=== PATIENT | female | born 2005 | race Caucasian/White ===

== ENCOUNTER 2025-07-18 18:36 | Emergency (ER) | payer MEDICAID ==
[2025-07-18 18:58] VITALS: BP 112/70; PULSE 95; RESP 15; O2SAT 98
--- NOTE | 2025-07-18 19:00 | Physician Documentation ---
History of Present Illness General Stated Complaint: FOOT PAIN Time Seen by MD: 20:17 History of Present Illness Initial Comments 19-year-old female who presents to the emergency department with a complaint of left mid foot pain after jumping over a fence. Seen and evaluated in triage. MSE complete pending x-ray imaging and pain management at when patient has been in the emergency department. History as above. She has taken nothing for the pain Medication Reconciliation Allergies: Coded Allergies: amoxicillin (Verified Allergy, Unknown, 07/18/25) Review of Systems ROS All review of systems negative except as per HPI Physical Exam Physical Exam Physical Exam General: Patient is awake, alert, oriented x4 in no acute distress and well appearing.~ Head: Normocephalic and atraumatic. Eyes: Conjunctival normal. EOMI. PERRL. ENT: Mucous membranes moist. Neck: Supple, trachea is midline. Chest: Clear to auscultation bilaterally without rales, rhonchi, or wheezes. There is no accessory muscle use or retractions. Cardiac: RRR without murmurs, gallops, or rubs. Extremities: No obvious ecchymosis swelling or abnormality of affected foot. Right lower extremity normal Progress Results/Orders Results/Orders Vital Signs 07/18/25 18:58 Temp 96.8 Pulse 95 Resp 15 B/P (MAP) 112/70 Pulse Ox 98 Laboratory Tests Test 07/18/25 19:21 Human Chorionic Gonadotropin, Qual Negative EKG/XRAY/CT/US/VASC/MRI Bone/Soft Tissue X-Ray (Ext.) : Additional Comment Foot series interpreted by myself is negative for fractures, negative for dislocations and negative for foreign bodies. Medical Decision Making Additional information obtaine: N/A Findings Patient presented to the emergency room for evaluation of foot pain as per HPI. Differentials include but are not limited to fractures, dislocation, soft tissue injury, vascular injury. X-ray reassuring and physical exam is reassuring. Patient placed in a brace in his neurovascularly intact status post splint placement. Rice therapy discussed. Differential Diagnosis k Departure Disposition: HOME / SELF CARE / HOMELESS Impression: Primary Impression: Sprain of foot Condition: Stable Discharge Instructions: RICE Therapy for Routine Care of Injuries Additional Instructions: Ibuprofen and Tylenol may be taken together for pain. Referrals: NO PRIMARY CARE PROVIDER (PCP) Signature Scribe Signature: No scribe Attestation: The note accurately reflects work and decisions made by me.Alvin Mujica MD 07/18/25 20:26 TERRI TIPTON Jul 18, 2025 18:59 ALVIN MUJICA MD Jul 18, 2025 20:27
[2025-07-18 19:42] LABS: HCG SERUM QL NEGATIVE
--- NOTE | 2025-07-18 20:29 | RADIOLOGY REPORT ---
CLINICAL INDICATION: pain to midfoot TECHNIQUE: 3 views DI FOOT, COMPLETE (3VW MIN) Comparison: None FINDINGS: No acute fracture or dislocation. Normal osseous mineralization. No significant degenerative change. Unremarkable soft tissues. IMPRESSION: 1. No acute osseous abnormality of the left foot.
[2025-07-18 20:32] VITALS: TEMP 96.8
== END 2025-07-18 20:34 | disposition home or self-care (01) ==
LOC: ER 18:38
DX: S93.692A Other sprain of left foot, initial encounter (principal); X58.XXXA Exposure to other specified factors, initial encounter; Y93.89 Activity, other specified; Y92.89 Other specified places as the place of occurrence of the external cause; Y99.8 Other external cause status
CPT/HCPCS: 29540; 36415; 73630; 84703; 99284; L1930; A6449

== ENCOUNTER 2025-08-17 10:38 | Emergency (ER) | payer MEDICAID ==
[~2025-08-17] VITALS: Ht 154.9 cm; Wt 92.4 kg
--- NOTE | 2025-08-17 11:45 | Physician Documentation ---
History of Present Illness ~ General Chief Complaint: Back Pain Stated Complaint: BACK PAIN Time Seen by MD: 10:47 Primary Medical Doctor: NO PCP Source: patient Mode of Arrival: POV History of Present Illness Initial Comments Patient is a 19-year-old female presenting in the ED for evaluation of acute on chronic back pain. She locates the pain to be in her mid lower back. Patient reports that the pain comes and goes but has been constant recently. Denies any injuries, dysuria, hematuria or fevers. She took ibuprofen and Tylenol today but did not have any relief. There are no other questions, concerns or complaints at this time. Medication Reconciliation Allergies: Coded Allergies: amoxicillin (Verified Allergy, Unknown, 08/17/25) Past Medical History Past Medical History: No Pertinent History Past Surgical History: tonsillectomy Smoking Status: Never smoker Alcohol Use: None Drug Use: none Review of Systems ROS ROS: Constitutional: Negative for fever and chills. HENT: Negative for sore throat and rhinorrhea. Eyes:Negative for pain and redness. Respiratory: Negative for cough and shortness of breath. Cardiovascular: Negative for chest pain and palpitations. Gastrointestinal: Negative for nausea and vomiting. Genitourinary: Negative for dysuria and hematuria. Musculoskeletal: + back pain. Negative for acute neck pain. Skin: Negative for rash and pruritus. Neurological: Negative for acute numbness or weakness. Physical Exam Physical Exam Vital Signs: Temperature: 98.4, Source: Temporal, Heart Rate: 89, Respiratory Rate: 20, BP: 110/73, Pulse Oximetry: 98, Weight: 92.400 Oxygen Flow Rate: 0 Physical Exam PHYSICAL EXAM: General Appearance: WDWN, No Distress, Cooperative, Awake Head: No Trauma. Scalp Normal Eyes: Lids normal, conjunctiva normal ENT: Mucous membranes normal, facial bones normal, lips normal, oropharynx normal Neck: Normal active FROM, non-tender with ROM, no meningeal signs, No JVD Back: Normal active FROM, non-tender with ROM, no CVAT Resp: Normal resp rate, normal flow, lungs clear to auscultation, no resp distress, no retractions Heart: Reg rhythm, no murmur Abd: Soft, non-tender, no guarding, no rebound, no mass Musc/Skel: Patient has paralumbar TTP, No chest wall tenderness, Normal ROM UE's and LE's, No acute bone/joint abnormality or tenderness, normal L5-S1 strength, no saddle anesthesia Skin: Normal color, no petechia/purpura, no rash Extremities: No edema Neuro: Motor 5/5 & Symmetric Bilat, CN 2-12 grossly intact and symmetric bilat. Oriented x4, speech normal. Psych: Mood & Affect: Normal, Depressed: 0, Awareness & insight normal Progress Results/Orders Results/Orders Orders - OLGA STEINBERG MD Lumbar Spine Limited (08/17/25 ) Completed Orders - OLGA STEINBERG MD Hcg, Ur Ql (08/17/25 11:45) Tramadol Tablet (Ultram Tablet) (08/17/25 11:45) Lumbar Spine Limited (08/17/25 ) Medications Received in ER Medications (Trade) Dose Ordered Sig/Vince Route PRN Reason Start Time Stop Time Status Last Admin Dose Admin (Ultram tablet) 50 mg ONCE ONCE PO 08/17/25 11:45 08/17/25 11:48 DC 08/17/25 12:15 50 MG Vital Signs 08/17/25 08/17/25 08/17/25 10:44 12:15 14:12 Temp 98.4 98.4 Pulse 89 69 Resp 20 16 18 B/P (MAP) 110/73 124/84 Pulse Ox 98 99 O2 Flow Rate 0 Laboratory Tests Test 08/17/25 11:50 Urine HCG, Qualitative Negative EKG/XRAY/CT/US/VASC/MRI Bone/Soft Tissue X-Ray (Spine) : Interpreted By: radiologist Additional Comment 1338: Dr. Steinberg independently reviewed the 3 view x-ray to show no acute abnormalities. EXAM: DI LUMBAR SPINE LIMITED INDICATION: pain TECHNIQUE:: 3 views of the lumbar spine COMPARISON: None FINDINGS/IMPRESSION: No radiographic evidence of an acute osseous abnormality. There is no acute fracture, osseous malalignment, or aggressive focal osseous lesion. Mild stool burden. No endplate compression fracture, spondylolisthesis, or pars defect. Electronically Signed by:BLAKE MAGALLON MD Date & Time: 08/17/25 7183 Medical Decision Making Additional information obtaine: family Findings Significant other at bedside endorses patient's lumbar pain Differential Diagnosis Patient is a 19-year-old female presenting in the ED for evaluation of acute on chronic back pain. ER COURSE Additional REPEAT EVALUATION: Results and plan of care discussed with patient, patient understands and is agreeable to plan and disposition MEDICAL DECISION MAKIN-year-old female presents with acute exacerbation of chronic lumbar pain no evidence of emergent issue on lumbar x-ray, no fracture, no spondylolisthesis, on physical exam no saddle anesthesia, normal L5/S1 strength okay for close follow up with PMD strict return precautions Please see ED course for time stamped additional medical decision making during ED stay Laboratory and radiology testing considered but deemed not necessary during this current emergency department visit: CT lumbar spine Departure Time of Disposition: 14:05 Disposition: 01 HOME / SELF CARE / HOMELESS Impression: Primary Impression: Acute on chronic back pain Condition: Stable Discharge Instructions: Chronic Back Pain Additional Instructions: Please follow up with your primary care provider regarding todays visit. Return to the ED for any new or worsening symptoms. We wish you a rapid recovery. Referrals: NO PRIMARY CARE PROVIDER (PCP) Education Educated: Patient Educated regarding: diagnosis, treatment Signature Scribe Signature: Scribed for Olga Steinberg MD by Jayleen Centeno . 08/17/25 11:46 Attestation: The note accurately reflects work and decisions made by me.Olga Steinberg MD 08/17/25 OLGA STEINBERG MD Aug 17, 2025 11:45 JAYLEEN GARNICA Aug 17, 2025 11:48
[2025-08-17 12:03] LABS: URINE HCG NEGATIVE (NEG)
--- NOTE | 2025-08-17 12:36 | RADIOLOGY REPORT ---
EXAM: DI LUMBAR SPINE LIMITED INDICATION: pain TECHNIQUE:: 3 views of the lumbar spine COMPARISON: None FINDINGS/IMPRESSION: No radiographic evidence of an acute osseous abnormality. There is no acute fracture, osseous malalignment, or aggressive focal osseous lesion. Mild stool burden. No endplate compression fracture, spondylolisthesis, or pars defect.
[2025-08-17 14:12] VITALS: BP 124/84; PULSE 69; RESP 18; TEMP 98.4; O2SAT 99
== END 2025-08-17 14:14 | disposition home or self-care (01) ==
LOC: ER 10:39
DX: G89.29 Other chronic pain (principal); M54.50 Low back pain, unspecified; Z88.1 Allergy status to other antibiotic agents; Z90.89 Acquired absence of other organs
CPT/HCPCS: 72100; 81025; 99284